=== PATIENT | male | born 1995 | race Two or more races ===

== ENCOUNTER 2024-11-28 00:54 | Inpatient (IN) | payer MEDICAID, OTHER ==
[~2024-11-28] VITALS: Ht 190.5 cm; Wt 71.0 kg
[2024-11-28 02:56] LABS: Hematocrit 40.8 % (41.0-53.0); Hemoglobin 13.6 g/dL (13.5-17.5); Mean Corpuscular Hemoglobin 29.2 pg (28.0-32.0); Mean Corpuscular Volume 87.5 fL (80.0-100.0); Nucleated Red Blood Cells % 0.2 %
[2024-11-28 03:01] LABS: Chloride 102 mmol/L (98-107); Potassium 4.2 mmol/L (3.5-5.1); Sodium 139 mmol/L (136-145)
[2024-11-28 03:02] LABS: Anion Gap 10 (5-15); Calcium 9.8 mg/dL (8.7-10.4); Carbon Dioxide 27 mmol/L (20-31)
[2024-11-28 03:07] LABS: BUN/Creatinine Ratio 20.5 (10.0-20.0)
[2024-11-28 03:13] LABS: Blood Urea Nitrogen 24 mg/dL (9-23); Glucose 118 mg/dL (74-106)
--- NOTE | 2024-11-28 03:31 | ED.PDOC ---
History of Present Illness HPI Comments 29 y/o M is BIBA from private residence for c/c nonradiating, right sided chest pain and shortness of breath. Significant history of CHF and HTN. Per EMS report, patient called 911 after developing chest pain and shortness of breath walking through [place], [place], while trying to make it to [place] from [place] after being discharged from [facility] yesterday. Patient reports history of CHF with an EF<10% He denies having any palpitations, nausea, vomiting, cough, congestion, fever, chills, or further associated symptoms. Chief Complaint: Shortness of Breath Time Seen by MD: 02:00 Reviewed Notes: Nurses Notes, Medications, Allergies Allergies: Coded Allergies: NO KNOWN ALLERGIES (Unverified , 11/28/24) Information Source: Patient, Emergency Med Personnel Mode of Arrival: EMS Severity: Moderate Timing: Hours Duration: Since onset Prehospital treatment: 12 Lead EKG, Nursery Helper Past Medical History PAST MEDICAL HISTORY: CHF, HTN Surgical History (Other): Angiogram Family History Family History: Unknown Social History Smoker: Non-Smoker Alcohol: Denies ETOH Use Drugs: Denies Drug Use Lives In: Home All Other Systems: Reviewed and Negative (Comprehensive review of systems are negative unless otherwise stated in HPI) Physical Exam General Appearance: No Apparent Distress HEENT: Other (Pupils and face symmetric. Moist mucous membranes.) Neck: Full Range of Motion, Normal Inspection Respiratory: No Accessory Muscle Use, No Respiratory Distress, Rales Cardiovascular: No Edema, No JVD, Regular Rate/Rhythm Breast Exam: Deferred Gastrointestinal: Non Tender, Soft Genitalia: Deferred Pelvic: Deferred Rectal: Deferred Extremities: Normal inspection, Normal range of motion, Non-tender, No pedal edema Neurologic: Alert (Oriented x4), Normal Affect, Normal Mood, Other (Ambulatory) Cerebellar Function: NOT DONE Reflexes: NOT DONE Skin: Dry, Normal Color, Warm Lymphatic: NOT DONE Was a procedure done? Was a procedure done?: No EKG EKG : Comments Sinus tach, rate 116, normal [place] and QRS intervals, QTC 490, biatrial enlargement, normal QRS, nonspecific T change Differential Dx Considerations may include: CHF, arrhythmia, MS, PE, ACS, URI, PNA, angina, among others X-Ray, Labs, Meds, VS Vital Signs Date Time Temp Pulse Resp B/P (MAP) Pulse Ox O2 Delivery O2 Flow Rate FiO2 11/28/24 04:21 97.3 116 20 127/92 (104) 100 97.3 11/28/24 01:10 116 11/28/24 01:05 97.9 114 16 109/56 98 97.9 Lab Test 11/28/24 03:25 11/28/24 02:28 Range/Units Troponin I High Sensitivity 205 *H 215 *H </=54 ng/L White Blood Count 7.6 4.4-10.8 10^3/uL Red Blood Count 4.66 4.5-5.90 10^6/uL Hemoglobin 13.6 13.5-17.5 g/dL Hematocrit 40.8 L 41.0-53.0 % Mean Corpuscular Volume 87.5 80.0-100.0 fL Mean Corpuscular Hemoglobin 29.2 28.0-32.0 pg Mean Corpuscular Hemoglobin Concent 33.4 32.0-36.0 g/dL Red Cell Distribution Width 15.8 H 11.8-14.3 % Platelet Count 268 140-450 10^3/uL Mean Platelet Volume 9.6 6.9-10.8 fL Neutrophils (%) (Auto) 75.3 37.0-80.0 % Lymphocytes (%) (Auto) 13.7 10.0-50.0 % Monocytes (%) (Auto) 9.5 0.0-12.0 % Eosinophils (%) (Auto) 0.2 0.0-7.0 % Basophils (%) (Auto) 1.3 0.0-2.0 % Neutrophils # (Auto) 5.7 1.6-8.6 10 ^3/uL Lymphocytes # (Auto) 1.0 0.4-5.4 10 ^3/uL Monocytes # (Auto) 0.7 0-1.3 10 ^3/uL Eosinophils # (Auto) 0 0-0.8 10 ^3/uL Basophils # (Auto) 0.1 0-0.2 10 ^3/uL Nucleated Red Blood Cells 0.2 % Sodium Level 139 136-145 mmol/L Potassium Level 4.2 3.5-5.1 mmol/L Chloride Level 102 98-107 mmol/L Carbon Dioxide Level 27 20-31 mmol/L Anion Gap 10 5-15 Blood Urea Nitrogen 24 H 9-23 mg/dL Creatinine 1.17 0.700-1.30 mg/dL Glomerular Filtration Rate Calc 85 >90 mL/min BUN/Creatinine Ratio 20.5 H 10.0-20.0 Serum Glucose 118 H 74-106 mg/dL Calcium Level 9.8 8.7-10.4 mg/dL B-Type Natriuretic Peptide 6.96 0-100 pg/mL PROCEDURE(s): CXRP - CHEST PORTABLE REASON: sob ORDER NUMBER(s): [id number], ACCESSION NUMBER(s): [id number] CHEST RADIOGRAPH Indication: sob Technique: 1 view Comparison: None available FINDINGS: Lines and Tubes: None Lungs: No focal consolidation. Pleura: No effusion or pneumothorax. Cardiomediastinal contours: Moderate cardiomegaly. Bones: No acute osseous abnormality. IMPRESSION: 1. Cardiomegaly without acute cardiopulmonary abnormality. X-Ray, Labs, Meds, VS Comment 29-year-old male with a history of hypertension and CHF with ejection fraction less than 10% complaining of chest pain and shortness of breath Vitals remarkable for heart rate 115, BP 109/56 Exam remarkable for tachycardia and diminished breath sounds at lung bases Rhythm strip independently interpreted by me: Sinus tach, rate 116, no ectopy. Chest x-ray IMPRESSION: 1. Cardiomegaly without acute cardiopulmonary abnormality. CBC unremarkable, basic metabolic panel remarkable for BUN 24, BNP 2026.96, serial troponins 215 and to 0 5 Patient treated with the following in the ED: Aspirin 325 mg p.o., nitro bid 1/2 inch to chest wall, Lasix 40 mg IV On re-evaluation, patient is resting comfortably with stable vitals. Plan is to admit the patient for diuresis and Cardiology evaluation. Time of 1ST Reevaluation: 02:30 Reevaluation 1ST: Unchanged Patient Education/Counseling: Diagnosis, Treatment, Other (need for admission ) Family Education/Counseling: No Family Present SEPSIS Sepsis Screen Date sepsis recognized/suspect: Nov 28, 2024 Time Sepsis recognized/suspect: 0111 Recent Procedure: No On Antibiotic Therapy: No Respiratory Rate >20: No Heart Rate >90: Yes Temp<36 C (96.8 F) or >38.3 C: No SBP <90 or MAP <65 mmHG: No New Acute Mental Status Change: No Is the patient on CPAP, BIPAP,: No SEPSIS EXCLUSION NOTE: Sepsis Exclusion Note: Patient presents with SIRS criteria, but the SIRS response is attributed to [ chest pain, CHF exacerbation], not a suspected infection. Sepsis bundle is not initiated at this time, due to this reason. Further management will focus on the treatment of the above condition (s). Physician Orders Chest Portable (11/28/24 02:13) Urinalysis (11/28/24 02:13) Electrocardigram (11/28/24 02:13) Troponin-I Hs (11/28/24 05:13) Vital Signs Date Time Temp Pulse Resp B/P (MAP) Pulse Ox O2 Delivery O2 Flow Rate FiO2 11/28/24 04:21 97.3 116 20 127/92 (104) 100 97.3 11/28/24 01:10 116 11/28/24 01:05 97.9 114 16 109/56 98 97.9 Laboratory Tests Test 11/28/24 02:28 White Blood Count 7.6 10^3/uL (4.4-10.8) Departure 1 Departure Time of Disposition: 05:06 Impression: Primary Impression: CHF exacerbation Additional Impression: Elevated troponin Disposition: ADMITTED INPATIENT Admit to: Tele Condition: Guarded Critical Care Note Critical Care Time?: Yes (35 min-critical care time only) Critical care comment: Critical care time including multiple bedside re-evaluations, review of lab and imaging studies, and discussion of the case with the admitting provider. Patient is high risk for hemodynamic decompensation. Stability Stability form required: No Heart Score Heart Score: Heart Score Response (Comments) Value History Moderate Suspicious 1 EKG Repolarization Disturb 1 Age <45 0 Risk Factors 1 or 2 risk factors 1 Troponin >3 x's Normal limit 2 Total 5 I personally scribed for JIGNESH BALL MD ([email or web address]) on 11/28/24 at 03:31. Electronically submitted by Andres Guzman [email or web address]). JIGNESH BALL MD Nov 28, 2024 03:31
--- NOTE | 2024-11-28 03:38 | DVH ---
CHEST RADIOGRAPH Indication: sob Technique: 1 view Comparison: None available FINDINGS: Lines and Tubes: None Lungs: No focal consolidation. Pleura: No effusion or pneumothorax. Cardiomediastinal contours: Moderate cardiomegaly. Bones: No acute osseous abnormality. IMPRESSION: 1. Cardiomegaly without acute cardiopulmonary abnormality.
[2024-11-28 05:43] LABS: Urine Protein, UAD Negative (Negative)
[2024-11-28] MEDS: NITROGLYCERIN 2% OINT 1GM PKG TD ONE (06:13)
[2024-11-28] MEDS: FUROSEMIDE 40 MG/4 ML VIAL IV ONE (06:27)
[2024-11-28 06:33] VITALS: PULSE 109; RESP 26; O2SAT 96
--- NOTE | 2024-11-28 06:39 | ECG ---
[facility] Test Date: 2024-11-28 Test Time: 01:10:25 Pat Name: GARRISON AREVALO Department: ED Room: [address] [place] [address] Gender: M Project Safety Manager: SHANE : 1995 Requested By: JIGNESH VERA Order Number: [id number] Reading MD: Bryan Jalloh Measurements Intervals [place] Rate: 116 P: 72 SC: 158 QRS: 68 QRSD: 98 T: 259 QT: 352 QTc: 490 Interpretive Statements Sinus tachycardia Biatrial enlargement Nonspecific T abnormalities, lateral leads Prolonged QT interval Electronically Signed On 11-28-2024 22:09:34 PDT by Bryan Jalloh Please click the below link to view image of tracing.
[2024-11-28 07:30] VITALS: PULSE 109; RESP 13; O2SAT 98
[2024-11-28] MEDS ORDERED: ASPI81CH59 PO (08:08)
[2024-11-28] MEDS ORDERED: DAPA1TAB4 PO (08:08)
[2024-11-28] MEDS ORDERED: LISI2.5T47 PO (08:08)
[2024-11-28] MEDS ORDERED: CARV3.1240 PO (08:08)
[2024-11-28] MEDS ORDERED: SPIR25TA8 PO (08:08)
[2024-11-28] MEDS ORDERED: APIX5TAB PO (08:08)
[2024-11-28] MEDS ORDERED: BUME2TAB5 PO (08:08)
[2024-11-28] MEDS ORDERED: ACETAMINOPHEN 325 MG TAB PO PRN (08:15)
[2024-11-28] MEDS ORDERED: MORPHINE SULFATE INJ 2 MG/ml SYRG IV PRN (08:15)
[2024-11-28] MEDS ORDERED: DOCUSATE SOD 100 MG CAP PO PRN (08:15)
[2024-11-28] MEDS ORDERED: NITROGLYCERIN 0.4 MG SL TAB SL PRN (08:15)
--- NOTE | 2024-11-28 08:16 | DVHHP2 ---
History of Present Illness Reason for Visit: Shortness of breath History of Present Illness Kyler Tanner is a 29-year-old male with past medical history of CHF, hypertension, and DVT in left leg, who came to the hospital for shortness of breath. Patient states he was recently discharged from [facility] yesterday. He was trying to get home when he started experiencing chest pain and shortness of breath. Patient states he was hospitalized there for almost a week due to his heart failure. He has not been taking his home medications because he does not have them. 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 Dyspnea, Lt Headedness, Other Gastrointestinal: No: Nausea, Vomiting, Abdominal Pain, Diarrhea, Constipation, Melena, Hematochezia, Other Genitourinary: No Dysuria, No Frequency, No Incontinence, No Hematuria, No Retention, No Other Musculoskeletal: No: other, neck pain, shoulder pain, arm pain, back pain, hand pain, leg pain, foot pain Skin: No: Rash, Lesions, Jaundice, Bruising, Other Neurological: No: Weakness, Numbness, Incoordination, Change in speech, Confusion, Seizures, Other Allergies: Coded Allergies: NO KNOWN ALLERGIES (Unverified , 11/28/24) Medications Current Medications Medications Dose Ordered Sig/Briana Route Start Time Stop Time Status Last Admin Dose Admin Sodium Chloride 10 ml Q8HR IV 11/28/24 14:00 UNV Acetaminophen/ Hydrocodone Bitart 1 tab Q4HP PRN PO 11/28/24 08:15 UNV Ondansetron HCl 4 mg Q4HP PRN IV 11/28/24 08:15 UNV Docusate Sodium 100 mg BIDPRN PRN PO 11/28/24 08:15 UNV Acetaminophen 650 mg Q6HP PRN PO 11/28/24 08:15 UNV Nitroglycerin 0.4 mg Q5MINP PRN SL 11/28/24 08:15 UNV Morphine Sulfate 2 mg Q30M PRN IV 11/28/24 08:15 UNV Apixaban 5 mg BID PO 11/28/24 10:00 UNV Carvedilol 3.125 mg BID PO 11/28/24 10:00 UNV Spironolactone 25 mg DAILY PO 11/28/24 10:00 UNV Patient Own Medication 1 tab DAILY PO 11/28/24 10:00 UNV Patient Own Medication 1 tab DAILY PO 11/28/24 10:00 UNV Lisinopril 2.5 mg DAILY PO 11/28/24 10:00 UNV Exam Vital Signs Vital Signs Date Time Temp Pulse Resp B/P (MAP) Pulse Ox O2 Delivery O2 Flow Rate FiO2 11/28/24 06:33 109 26 96 Room Air* 0 21 11/28/24 06:27 118/84 11/28/24 04:21 97.3 97.3 General Appearance: Alert, Oriented X3, Cooperative, mild distress HEENT: Atraumatic Respiratory: Clear to auscultation, Normal air movement Cardiovascular: Normal S1, Normal S2, Other (ST) Abdominal: Normal bowel sounds, Soft, No tenderness, No hepatospenomegaly Extremities: No clubbing, No cyanosis, Normal pulses, Other (bilateral lower extremity edema) Skin: No rashes, No breakdown, No significant lesion Neuro: Normal gait, Normal speech, Strength at 5/5 X4 ext Psych/Mental Status: Mental status NL, Mood NL Labs/Xrays Labs Test 11/28/24 05:36 11/28/24 05:26 11/28/24 02:28 Range/Units Urine Color Yellow Yellow Urine Clarity Clear Clear Urine pH 5.0 5.0-9.0 Urine Specific [place] 1.017 1.001-1.035 Urine Protein Negative Negative Urine Ketones Negative Negative Urine Blood Negative Negative /uL Urine Nitrite Negative Negative Urine Bilirubin Negative Negative Urine Urobilinogen Normal Negative mg/dL Urine Leukocyte Esterase Negative Negative /uL Urine RBC None seen 0 - 3 /hpf Urine Microscopic WBC < 1 0-3 /HPF Urine Squamous Epithelial Cells None seen <5 /hpf Urine Bacteria None seen None Seen /hpf Urine Glucose Normal Normal mg/dL Troponin I High Sensitivity 215 *H </=54 ng/L White Blood Count 7.6 4.4-10.8 10^3/uL Red Blood Count 4.66 4.5-5.90 10^6/uL Hemoglobin 13.6 13.5-17.5 g/dL Hematocrit 40.8 L 41.0-53.0 % Mean Corpuscular Volume 87.5 80.0-100.0 fL Mean Corpuscular Hemoglobin 29.2 28.0-32.0 pg Mean Corpuscular Hemoglobin Concent 33.4 32.0-36.0 g/dL Red Cell Distribution Width 15.8 H 11.8-14.3 % Platelet Count 268 140-450 10^3/uL Mean Platelet Volume 9.6 6.9-10.8 fL Neutrophils (%) (Auto) 75.3 37.0-80.0 % Lymphocytes (%) (Auto) 13.7 10.0-50.0 % Monocytes (%) (Auto) 9.5 0.0-12.0 % Eosinophils (%) (Auto) 0.2 0.0-7.0 % Basophils (%) (Auto) 1.3 0.0-2.0 % Neutrophils # (Auto) 5.7 1.6-8.6 10 ^3/uL Lymphocytes # (Auto) 1.0 0.4-5.4 10 ^3/uL Monocytes # (Auto) 0.7 0-1.3 10 ^3/uL Eosinophils # (Auto) 0 0-0.8 10 ^3/uL Basophils # (Auto) 0.1 0-0.2 10 ^3/uL Nucleated Red Blood Cells 0.2 % Sodium Level 139 136-145 mmol/L Potassium Level 4.2 3.5-5.1 mmol/L Chloride Level 102 98-107 mmol/L Carbon Dioxide Level 27 20-31 mmol/L Anion Gap 10 5-15 Blood Urea Nitrogen 24 H 9-23 mg/dL Creatinine 1.17 0.700-1.30 mg/dL Glomerular Filtration Rate Calc 85 >90 mL/min BUN/Creatinine Ratio 20.5 H 10.0-20.0 Serum Glucose 118 H 74-106 mg/dL Calcium Level 9.8 8.7-10.4 mg/dL B-Type Natriuretic Peptide 2026.96 0-100 pg/mL CHEST RADIOGRAPH FINDINGS: Lines and Tubes: None Lungs: No focal consolidation. Pleura: No effusion or pneumothorax. Cardiomediastinal contours: Moderate cardiomegaly. Bones: No acute osseous abnormality. IMPRESSION: 1. Cardiomegaly without acute cardiopulmonary abnormality. SEPSIS Sepsis Screen Date sepsis recognized/suspect: Nov 28, 2024 Time Sepsis recognized/suspect: 636 Recent Procedure: No On Antibiotic Therapy: No Respiratory Rate >20: Yes Heart Rate >90: Yes Temp<36 C (96.8 F) or >38.3 C: No SBP <90 or MAP <65 mmHG: No New Acute Mental Status Change: No Is the patient on CPAP, BIPAP,: No Physician Orders Chest Portable (11/28/24 02:13) Admit (11/28/24 08:05) Code Status (11/28/24 08:05) Sodium Chloride Lock (Saline Lock Ns) (11/28/24 14:00) Hydrocodone-Acet 5/325mg Tab ([place] 5/32 (11/28/24 08:15) Ondansetron Hcl (Zofran) (11/28/24 08:15) Docusate Sodium Capsule (Colace Capsule) (11/28/24 08:15) Complete Blood Count (11/29/24 04:00) Comprehensive Metabolic Panel (11/29/24 04:00) Cardiac Diet-2gna,Lofat,Lochol (11/28/24 Breakfast) Echo 2d Mode Cardiac Dop (11/28/24 08:05) Condition: Serious (11/28/24 08:05) Acetaminophen Tablet (Tylenol Tablet) (11/28/24 08:15) Nitroglycerin Sublingual (Ntrostat Subli (11/28/24 08:15) Morphine Sulfate Injection (11/28/24 08:15) Stat Ekg For Chest Pain (11/28/24 08:05) Notify Md Of Changes From Base (11/28/24 08:05) Hand Cigar Making Supervisor For 24 Hours (11/28/24 08:05) Emergency Dysrhythmia Protocol (11/28/24 08:05) Rhythm Strips Once Every Shift (11/28/24 08:05) Oxygen By Nasal Cannula (11/28/24 08:05) Maintain Fluid Restrictions QSHIFT (11/28/24 08:05) * Drywall Finisher Foreman Consult (11/28/24 ) Apixaban (Eliquis) (11/28/24 10:00) Carvedilol Tablet (Coreg Tablet) (11/28/24 10:00) Spironolactone (Aldactone) (11/28/24 10:00) (Nf) Aspirin (Aspirin Low Dose) (11/28/24 10:00) (Nf) Dapagliflozin Propanediol (Farxiga) (11/28/24 10:00) Lisinopril Tablet (Zestril Tablet) (11/28/24 10:00) Vital Signs Date Time Temp Pulse Resp B/P (MAP) Pulse Ox O2 Delivery O2 Flow Rate FiO2 11/28/24 06:33 109 26 96 Room Air* 0 21 11/28/24 06:27 118/84 11/28/24 06:13 118/84 11/28/24 06:11 117 17 118/84 (95) 97 11/28/24 04:21 97.3 116 20 127/92 (104) 100 97.3 11/28/24 01:10 116 11/28/24 01:05 97.9 114 16 109/56 98 97.9 Laboratory Tests Test 11/28/24 02:28 White Blood Count 7.6 10^3/uL (4.4-10.8) Medications Medications Dose Ordered Sig/Briana Route Start Time Stop Time Status Last Admin Dose Admin Aspirin 325 mg ONCE ONCE PO 11/28/24 05:15 11/28/24 05:16 DC 11/28/24 06:12 325 MG Furosemide 40 mg ONCE ONCE IV 11/28/24 02:15 11/28/24 02:16 DC 11/28/24 06:27 40 MG Nitroglycerin 1 pkg ONCE ONCE TD 11/28/24 02:15 11/28/24 02:16 DC 11/28/24 06:13 1 PKG Assessment/Plan Assessment/Plan Assessment: CHF exacerbation, Hypertension, Cardiomegaly, DVT, Plan: Admit to Tele, Social service consult, Cardiology consult, ECHO, Ultrasound left lower extremity, IV diuretic, Fluid restriction, Social service consult, Home medications reconciled, Plan discussed with: Patient My Orders Orders - JUDY CRUZ SHIFT PRODUCTION ASSOCIATE Procedure Category Date Status Time Admit ADMIT 11/28/24 Transmitted 08:05 Code Status CODE 11/28/24 Transmitted 08:05 Sodium Chloride Lock PHA 11/28/24 Logged (Saline Lock Ns) 14:00 Hydrocodone-Acet PHA 11/28/24 Logged 5/325mg Tab ([place] 08:15 Ondansetron Hcl PHA 11/28/24 Logged (Zofran) 08:15 Docusate Sodium PHA 11/28/24 Logged Capsule (Colace 08:15 Complete Blood Count LAB 11/29/24 Verified 04:00 Comprehensive LAB 11/29/24 Verified Metabolic Panel 04:00 Cardiac DIET 11/28/24 Transmitted Diet-2gna,Lofat,Lochol Breakfast Echo 2d Mode Cardiac US 11/28/24 Logged DOP 08:05 Condition: Serious [facility] [place] 11/28/24 In Process 08:05 Acetaminophen Tablet [facility] 11/28/24 Logged (Tylenol Tablet) 08:15 Nitroglycerin PHA 11/28/24 Logged Sublingual (Ntrostat 08:15 Morphine Sulfate PHA 11/28/24 Logged Injection 08:15 Stat Ekg For Chest [facility] [place] 11/28/24 In Process Pain 08:05 Notify Of Changes [facility] [place] 11/28/24 In Process From Base 08:05 Hand Cigar Making Supervisor For [facility] [place] 11/28/24 In Process 24 Hours 08:05 Emergency Dysrhythmia [facility] [place] 11/28/24 In Process Protocol 08:05 Rhythm Strips Once [facility] [place] 11/28/24 In Process Every Shift 08:05 Oxygen By Nasal RT 11/28/24 Transmitted Cannula 08:05 Maintain Fluid [facility] [place] 11/28/24 In Process Restrictions 08:05 * Drywall Finisher Foreman CONS 11/28/24 Transmitted Consult Apixaban (Eliquis) PHA 11/28/24 Logged 10:00 Carvedilol Tablet PHA 11/28/24 Logged (Coreg Tablet) 10:00 Spironolactone PHA 11/28/24 Logged (Aldactone) 10:00 (Nf) Aspirin (Aspirin PHA 11/28/24 Logged Low Dose) 10:00 (Nf) Dapagliflozin PHA 11/28/24 Logged Propanediol (Farxiga) 10:00 Lisinopril Tablet PHA 11/28/24 Logged (Zestril Tablet) 10:00 Date of Service: Nov 28, 2024 Billing Provider: JUDY CRUZ Common Visit Codes: [id number] INP/OBS CARE (MOD) JUDY CRUZ Nov 28, 2024 08:16
--- NOTE | 2024-11-28 09:05 | DVH ---
Left lower extremity venous duplex Clinical History: H/O DVT Comparison: None Technique: Duplex Doppler evaluation of the deep venous system of the left lower extremity from the common femor al vein to the popliteal vein including color Doppler and spectral/pulsed waveform analysis was perfo rmed. Findings: The common femoral vein demonstrates appropriate compressibility and waveform variability. There is compressibility/patency of the great saphenous vein at the proximal thigh. The femoral vein demonstrates appropriate compressibility and waveform variability. The deep femoral vein demonstrates appropriate compressibility and waveform variability. The popliteal vein demonstrates appropriate compressibility and waveform variability. There is normal compressibility at the tibioperoneal trunk. Impression: 1. No left femoropopliteal venous thrombosis.
[2024-11-28] MEDS: DAPAGLIFLOZIN PROPANEDIOL 10 MG PO SCH (10:00)
[2024-11-28] MEDS ORDERED: PATIENTS OWN MEDICATION (Aspirin (Aspirin Low Dose) 1 TAB) PO SCH (10:00)
[2024-11-28] MEDS: ASPirin-EC 81 mg tab PO SCH (10:22)
[2024-11-28] MEDS: CARVEDILOL 3.125 MG TAB PO SCH (10:23)
[2024-11-28] MEDS: LISINOPRIL 5 MG TAB PO SCH (10:24)
[2024-11-28] MEDS: APIXABAN 5 MG TAB PO SCH (10:24)
[2024-11-28] MEDS: SPIRONOLACTONE 25 MG TAB PO SCH (10:37)
[2024-11-28] MEDS: SODIUM CHLOR 0.9% PF (SALINE LOCK) 10ML VIAL/SYR IV SCH (14:00)
--- NOTE | 2024-11-28 14:00 | DVHPN2 ---
Subjective He is admitted this morning for shortness for breath. Noted to have heart failure. Discussed with the Cardiology. Changes from previous H/P or p: No Changes Objective Vitals Vital Signs Date Time Temp Pulse Resp B/P (MAP) Pulse Ox O2 Delivery O2 Flow Rate FiO2 11/28/24 12:00 107 23 100/58 (72) 98 11/28/24 07:30 Room Air* 0 21 11/28/24 07:30 97.9 97.9 Intake/Output Intake and Output 11/28/24 07:00 Output Total 300 ml Balance -300 ml Output Urine Total 300 ml Exam No significant change from this morning examination. HEENT neck supple no JVD. Heart regular rate and rhythm S1-S2. Lungs without rales wheezes degraded breath sounds at bases. Abdomen soft obese positive bowel sounds. Extremities positive edema. Medications Current Medications Medications Dose Ordered Sig/Briana Route Start Time Stop Time Status Last Admin Dose Admin Sodium Chloride 10 ml Q8HR IV 11/28/24 14:00 Acetaminophen/ Hydrocodone Bitart 1 tab Q4HP PRN PO 11/28/24 08:15 Ondansetron HCl 4 mg Q4HP PRN IV 11/28/24 08:15 Docusate Sodium 100 mg BIDPRN PRN PO 11/28/24 08:15 Acetaminophen 650 mg Q6HP PRN PO 11/28/24 08:15 Nitroglycerin 0.4 mg Q5MINP PRN SL 11/28/24 08:15 Morphine Sulfate 2 mg Q30M PRN IV 11/28/24 08:15 Apixaban 5 mg BID PO 11/28/24 10:00 11/28/24 10:24 5 MG Carvedilol 3.125 mg BID PO 11/28/24 10:00 11/28/24 10:23 3.125 MG Spironolactone 25 mg DAILY PO 11/28/24 10:00 11/28/24 10:37 25 MG Patient Own Medication 1 tab DAILY PO 11/28/24 10:00 UNV Patient Own Medication 1 tab DAILY PO 11/28/24 10:00 Lisinopril 2.5 mg DAILY PO 11/28/24 10:00 11/28/24 10:24 2.5 MG Bumetanide 1 mg BIDD IV 11/28/24 18:00 Aspirin 81 mg DAILY PO 11/28/24 10:00 84/25 10:22 81 MG Laboratory Results Laboratory Tests 11/28/24 02:28 Chemistry Test 11/28/24 02:28 Calcium Level 9.8 mg/dL (8.7-10.4) Cardiac Markers Test 11/28/24 02:28 B-Type Natriuretic Peptide 2026.96 pg/mL (0-100) Urinalysis Test 11/28/24 05:36 Urine Color Yellow (Yellow) Urine Clarity Clear (Clear) Urine pH 5.0 (5.0-9.0) Urine Specific [place] 1.017 (1.001-1.035) Urine Protein Negative (Negative) Urine Ketones Negative (Negative) Urine Blood Negative /uL (Negative) Urine Nitrite Negative (Negative) Urine Bilirubin Negative (Negative) Urine Urobilinogen Normal mg/dL (Negative) Urine Leukocyte Esterase Negative /uL (Negative) Urine RBC None seen /hpf (0 - 3) Urine Microscopic WBC < 1 /HPF (0-3) Urine Squamous Epithelial Cells None seen /hpf (<5) Urine Bacteria None seen /hpf (None Seen) Urine Glucose Normal mg/dL (Normal) Assessment/Plan Assessment/Plan Acute congestive heart failure. I will send a urine drug screen. Pending cardiology consultation. Continue IV diuretics as he is on. Continue Accu- Cheks and sliding scale insulin. Check A1c level and lipid panel. Otherwise continue rest of supportive care and treatment. Further clinical management per clinical course and recommendations from the Cardiology. Plan discussed with: Other My Orders Orders - MAR JACKSON MD Procedure Category Date Status Time * Cardiology Consult CONS 11/28/24 Transmitted 12:30 Drug Screen LAB 11/28/24 Logged 12:31 Urinalysis LAB 11/28/24 Logged 12:31 Problem List: (1) Elevated troponin (2) CHF exacerbation Date of Service: Nov 28, 2024 Billing Provider: MAR JACKSON MD Common Visit Codes: [id number] INP/OBS CARE(MOD) MAR JACKSON MD Nov 28, 2024 14:00
--- NOTE | 2024-11-28 14:03 | DVHSR ---
APPROVED REPORT EXAM: Two-dimensional and M-mode echocardiogram with Doppler and color Doppler. Blood Pressure: 118/84 mmHg INDICATION Heart Failure RISK FACTORS Height: 6'2", Weight: 149 DIMENSIONS LVDd6.5 (3.8-5.7cm)LA (2D)4.2 (1.9-4.0cm)Aortic Root2.3 (2.0-3.7cm) LVDs6.3 (2.5-4.0cm)LA (MM) (1.9-4.0cm)Aortic Cusp Exc1.9 (1.5-2.0cm) EF (%) 8.0 (55-70%)Rt. Atrium5.3 (1.9-4.0cm)Asc. Aorta2.0 cm IVSd0.7 (0.7-1.1cm)RV (D)4.2 (1.8-2.4cm) PWd0.7 (0.7-1.1cm) Mitral Valve MitralMitral Stenosis E wave1.34m/sMV Mean GR.mmHg E/A ratio0.02D MVAcm2 Aortic Valve Aortic ValveAortic Stenosis V10.66m/Josh Mean GR.2mmHg V20.97m/Josh Peak GR.4mmHg LVOT Diameter1.9 (1.8-2.4cm)Doppler AVA1.93cm2 Pulmonic Valve V20.55m/s Tricuspid Valve TR Velocity2.66m/s [id number] Conclusion LVEF 10% SEVER DILATED LV END STAGE CARDIOMYOPATHY RV DYSFUNCTION BIATRIAL ENLARGEMENT MILD MITRAL REGURG (COULD BE WORSE) SEVERE TRICUSPID REGURG NOTED milpd pulmonic regurg
--- NOTE | 2024-11-28 14:36 | DVHINCON2 ---
PENG THOMSON [facility] 11/28/24 1436: Date Seen: Nov 28, 2024 Referring Physician MD Marcello Reason for Consultation CHF History of Present Illness This is a 29-year-old male patient who presents to the emergency room with chief complaint of shortness of breath for one day prior to emergency room arrival. Cardiology has been consulted at this time for congestive heart failure exacerbation. Initial twelve lead electrocardiogram reveals sinus tachycardia without any significant ST segment changes. Initial troponin level of 215ng/L with flat trend thereafter. Patient denies any chest pain. Initial BNP level of 2026.96pg/mL. Significant past medical history includes congestive heart failure, nonischemic cardiomyopathy, hypertension, lower extremity DVT (on Eliquis), and drug abuse. The patient reports he was recently hospitalized at [facility]. He reports undergoing a coronary angiogram dustin roximately five days ago without any catheter based intervention. The patient reports that after discharge, he did not receive any medications and has not been taking any medications for his heart failure. He also admits to dietary indiscretions. He has not established a supervisor of officials in the outpatient setting. Past Medical History Past medical history reviewed. No other significant than mentioned above. Past Surgical History Denies any previous surgical intervention Family History Family history reviewed. Social History Patient admits to prior methamphetamine use, states he has not used drugs in approximately two months Reports history of occasional cigar use, reports he has not used any tobacco in two months Denies any alcohol use Allergies: Coded Allergies: NO KNOWN ALLERGIES (Unverified , 11/28/24) Home Meds Reported Medications Apixaban Base (ELIQUIS) 5 Mg Tab, 1 TAB PO BID 11/28/24 Aspirin (Aspirin Low Dose) 81 Mg Chw, 1 TAB PO DAILY 11/28/24 Spironolactone (Spironolactone) 25 Mg Tab, 1 TAB PO DAILY 11/28/24 Lisinopril (Lisinopril) 2.5 Mg Tab, PO 11/28/24 Carvedilol (Carvedilol) 3.125 Mg Tab, 1 TAB PO BID 11/28/24 Dapagliflozin Propanediol (Farxiga) 10 Mg Tab, 1 TAB PO DAILY 11/28/24 Bumetanide (Bumetanide) 2 Mg Tab, 1 TAB PO BID 11/28/24 Home Meds Home medications reviewed. Current Medications Current Medications Medications (Trade) Dose Ordered Sig/Briana Route PRN Reason Start Time Stop Time Status Last Admin Sodium Chloride (Saline Lock Ns) 10 ml Q8HR IV 11/28/24 14:00 Acetaminophen/ Hydrocodone Bitart ([place] 5/325MG Tab) 1 tab Q4HP PRN PO MODERATE PAIN (4-6 PAIN SCALE) 11/28/24 08:15 Ondansetron HCl (Zofran) 4 mg Q4HP PRN IV NAUSEA / VOMITING 11/28/24 08:15 Docusate Sodium (Colace Capsule) 100 mg BIDPRN PRN PO FOR CONSTIPATION 11/28/24 08:15 Acetaminophen (Tylenol Tablet) 650 mg Q6HP PRN PO PAIN SCALE 1-3 OR TEMP>100.4 11/28/24 08:15 Nitroglycerin (Ntrostat Sublingual) 0.4 mg Q5MINP PRN SL FOR CHEST PAIN 11/28/24 08:15 Morphine Sulfate 2 mg Q30M PRN IV FOR CHEST PAIN 11/28/24 08:15 Apixaban (Eliquis) 5 mg BID PO 11/28/24 10:00 11/28/24 10:24 Carvedilol (Coreg Tablet) 3.125 mg BID PO 11/28/24 10:00 11/28/24 10:23 Spironolactone (Aldactone) 25 mg DAILY PO 11/28/24 10:00 11/28/24 10:37 Patient Own Medication 1 tab DAILY PO 11/28/24 10:00 UNV Patient Own Medication 1 tab DAILY PO 11/28/24 10:00 Lisinopril (Zestril Tablet) 2.5 mg DAILY PO 11/28/24 10:00 11/28/24 10:24 Bumetanide (Bumex Injection) 1 mg BIDD IV 11/28/24 18:00 Aspirin (Ecotrin Enteric Coated Tablet) 81 mg DAILY PO 11/28/24 10:00 11/28/24 10:22 Review of Systems Constitutional: No symptom reported Ears, Nose, & Throat: No symptom reported Eyes: No symptom reported Neurological: No symptoms reported Pulmonary/Respiratory: No symptoms reported Cardiovascular: No symptom reported Gastrointestinal: No symptom reported Genitourinary: No symptom reported Musculoskeletal: No symptom reported Skin: No symptom reported Psychiatric: No symptom reported Endocrine: No symptom reported Hematologic/Lymphatic: No symptom reported Vital Signs Vital Signs Date Time Temp Pulse Resp B/P (MAP) Pulse Ox O2 Delivery O2 Flow Rate FiO2 11/28/24 12:00 107 23 100/58 (72) 98 11/28/24 07:30 Room Air* 0 21 11/28/24 07:30 97.9 97.9 Physical Exam General Appearance: Cooperative. Well-developed. Well-nourished. No acute distress. Pulmonary/Respiratory: Clear, bilateral breaths sounds. Cardiovascular/Chest: Regular rate and rhythm. Peripheral Pulses: 2+ Radial (R). 2+ Radial (L). 2+ Pedal (R). 2+ Pedal (L) Abdominal Exam: Normal bowel sounds. Ankle Exam: Negative ankle edema Lower extremities: Negative lower extremity edema Neuro/Mental Status: A/OX4, coherent. Thoughts/Psych: Normal thought pattern. Appropriate mood and affect. Good judgment and insight. Appearance: No acute distress. Skin Exam: Normal inspection. Normal color. Warm and dry. Labs/Diagnostic Data Labs Test 11/28/24 05:36 11/28/24 05:26 11/28/24 02:28 Range/Units Urine Color Yellow Yellow Urine Clarity Clear Clear Urine pH 5.0 5.0-9.0 Urine Specific [place] 1.017 1.001-1.035 Urine Protein Negative Negative Urine Ketones Negative Negative Urine Blood Negative Negative /uL Urine Nitrite Negative Negative Urine Bilirubin Negative Negative Urine Urobilinogen Normal Negative mg/dL Urine Leukocyte Esterase Negative Negative /uL Urine RBC None seen 0 - 3 /hpf Urine Microscopic WBC < 1 0-3 /HPF Urine Squamous Epithelial Cells None seen <5 /hpf Urine Bacteria None seen None Seen /hpf Urine Glucose Normal Normal mg/dL Troponin I High Sensitivity 215 *H </=54 ng/L White Blood Count 7.6 4.4-10.8 10^3/uL Red Blood Count 4.66 4.5-5.90 10^6/uL Hemoglobin 13.6 13.5-17.5 g/dL Hematocrit 40.8 L 41.0-53.0 % Mean Corpuscular Volume 87.5 80.0-100.0 fL Mean Corpuscular Hemoglobin 29.2 28.0-32.0 pg Mean Corpuscular Hemoglobin Concent 33.4 32.0-36.0 g/dL Red Cell Distribution Width 15.8 H 11.8-14.3 % Platelet Count 268 140-450 10^3/uL Mean Platelet Volume 9.6 6.9-10.8 fL Neutrophils (%) (Auto) 75.3 37.0-80.0 % Lymphocytes (%) (Auto) 13.7 10.0-50.0 % Monocytes (%) (Auto) 9.5 0.0-12.0 % Eosinophils (%) (Auto) 0.2 0.0-7.0 % Basophils (%) (Auto) 1.3 0.0-2.0 % Neutrophils # (Auto) 5.7 1.6-8.6 10 ^3/uL Lymphocytes # (Auto) 1.0 0.4-5.4 10 ^3/uL Monocytes # (Auto) 0.7 0-1.3 10 ^3/uL Eosinophils # (Auto) 0 0-0.8 10 ^3/uL Basophils # (Auto) 0.1 0-0.2 10 ^3/uL Nucleated Red Blood Cells 0.2 % Sodium Level 139 136-145 mmol/L Potassium Level 4.2 3.5-5.1 mmol/L Chloride Level 102 98-107 mmol/L Carbon Dioxide Level 27 20-31 mmol/L Anion Gap 10 5-15 Blood Urea Nitrogen 24 H 9-23 mg/dL Creatinine 1.17 0.700-1.30 mg/dL Glomerular Filtration Rate Calc 85 >90 mL/min BUN/Creatinine Ratio 20.5 H 10.0-20.0 Serum Glucose 118 H 74-106 mg/dL Calcium Level 9.8 8.7-10.4 mg/dL B-Type Natriuretic Peptide 2026.96 0-100 pg/mL Assessment Acute on chronic decompensated HFrEF, NYHA class III NSTEMI, type 2 secondary to above Nonischemic dilated cardiomyopathy Severe tricuspid regurgitation Hypertension History of lower extremity DVT (on Eliquis) History of amphetamine use Medical noncompliance Plan/Recommendation We will continue with the following plan/recommendations (Dr. Henry): * Transthoracic echocardiogram reveals an EF of 10%, RVSP 45 mmHg * Initiate guideline directed medical therapy for CHF * Strict intake and output, daily weights, maintain fluid restriction * Preload and afterload reduction * Close Cardiac surveillance * Risk factor modifications, counseled * Adherence to medications * Complete cessation from substance use Case discussed with . Thank you for allowing us to care for this patient. Please call with any questions or concerns. Critical care time spent: 44 minutes This medical document was created using an electronic medical record system with voice recognition software and computerized dictation system. Although this document has been carefully reviewed, there might still be some phonetic and typographical errors. Occasional wrong-word or ``sound-alike substitutions may have occurred due to the inherent limitations of voice recognition software. These areas are purely typographical due to imperfections of the software programs and do not reflect any compromise in the patient's medical care. Please read the chart carefully and recognize, using context, where these substitutions have occurred. Plan discussed with: Patient NYHA Physical activity limitations: Class3(Marked) ordinary (activity causes symtoms) Date of Service: Nov 28, 2024 Billing Provider: PENG THOMSON Cardiology Common Codes: 18620-CMNGQNT INP/OBS CARE (High) Cardiology Consultation Codes: 47096-OIRSGLTST CONSULT <45MIN GRUPO HENRY MD 11/29/24 1105: Allergies: Coded Allergies: NO KNOWN ALLERGIES (Unverified , 11/28/24) Home Meds Reported Medications Apixaban Base (ELIQUIS) 5 Mg Tab, 1 TAB PO BID 11/28/24 Aspirin (Aspirin Low Dose) 81 Mg Chw, 1 TAB PO DAILY 11/28/24 Spironolactone (Spironolactone) 25 Mg Tab, 1 TAB PO DAILY 11/28/24 Lisinopril (Lisinopril) 2.5 Mg Tab, PO 11/28/24 Carvedilol (Carvedilol) 3.125 Mg Tab, 1 TAB PO BID 11/28/24 Dapagliflozin Propanediol (Farxiga) 10 Mg Tab, 1 TAB PO DAILY 11/28/24 Bumetanide (Bumetanide) 2 Mg Tab, 1 TAB PO BID 11/28/24 Plan/Recommendation totally non compliant pt active drug abuse recent admit to outside facility very grim prognosis senior living with continued lack of adherence diurese pt, dc home to follow with GDMT . unlikely to be taken PENG THOMSON Nov 28, 2024 14:36 GRUPO HENRY MD Nov 29, 2024 11:05
[2024-11-28 14:57] LABS: Triglycerides 66.0 mg/dL (< 150)
[2024-11-28 14:58] LABS: Magnesium 2.4 mg/dL (1.6-2.6)
[2024-11-28 14:59] LABS: Cholesterol 128.0 mg/dL (< 200); HDL Cholesterol 51.0 mg/dL (40-59)
[2024-11-28 15:03] LABS: Amphetamine Screen, Urine Neg (NEGATIVE); Barbiturate Scree,Urine Neg (NEGATIVE); Benzodiazephine Screen, Urine Neg (NEGATIVE); Cannabinoid Screen, Urine Neg (NEGATIVE); Cocaine Screen, Urine Neg (NEGATIVE); Opiate Scree,Urine Neg (NEGATIVE); Phencyclidine Screen, Urine Neg (NEGATIVE)
[2024-11-28 17:00] VITALS: BP 94/61; O2SAT 96
[2024-11-28] MEDS: BUMETANIDE 1mg/4ml VIAL (0.25mg/ml) IV SCH (19:00)
[2024-11-28] MEDS: HYDROcodone-ACET 5/325MG TAB PO PRN (21:22)
[2024-11-28 21:27] VITALS: BP 114/74; PULSE 109; RESP 14; TEMP 97.7; O2SAT 100
[2024-11-28 21:49] LABS: Urine Protein, UAD Negative (Negative)
[2024-11-29 00:51] VITALS: BP 114/74; PULSE 109; RESP 14; TEMP 97.7; O2SAT 100
[2024-11-29 05:00] VITALS: BP 115/74; PULSE 98; RESP 16; TEMP 98.2; O2SAT 97
[2024-11-29 07:56] LABS: Hematocrit 41.1 % (41.0-53.0); Hemoglobin 13.6 g/dL (13.5-17.5); Mean Corpuscular Hemoglobin 29.3 pg (28.0-32.0); Mean Corpuscular Volume 88.3 fL (80.0-100.0); Nucleated Red Blood Cells % 0.1 %
[2024-11-29 08:00] VITALS: PULSE 94; RESP 18; O2SAT 99
[2024-11-29 08:06] LABS: Alanine Aminotransferase 88 U/L (7-40); Albumin 4.6 g/dL (3.2-4.8); Alkaline Phosphatase 123 U/L (46-116); Anion Gap 11 (5-15); BUN/Creatinine Ratio 20.5 (10.0-20.0); Blood Urea Nitrogen 26 mg/dL (9-23); Calcium 9.4 mg/dL (8.7-10.4); Carbon Dioxide 27 mmol/L (20-31); Chloride 102 mmol/L (98-107); Glucose 99 mg/dL (74-106); Potassium 4.0 mmol/L (3.5-5.1); Sodium 140 mmol/L (136-145); Total Protein 7.0 g/dL (5.7-8.2)
[2024-11-29 08:09] LABS: Bilirubin, Total 1.7 mg/dL (0.2-1.0)
[2024-11-29 09:00] VITALS: BP 121/75; PULSE 95; RESP 18; TEMP 98; O2SAT 100
[2024-11-29] MEDS: EMPAGLIFLOZIN 10 MG TAB PO SCH (10:28)
[2024-11-29 13:00] VITALS: BP 96/61; PULSE 60; RESP 18; TEMP 98; O2SAT 99
--- NOTE | 2024-11-29 14:45 | DVHPN2 ---
Subjective Evaluated by Cardiology had an echocardiogram shows ejection fraction about 10%. Patient counseled and educated regarding his poor ejection fraction heart failure and compliance with the medications. Apparently has not been taking his cardiac medications for last few months. Changes from previous H/P or p: No Changes Objective Vitals Vital Signs Date Time Temp Pulse Resp B/P (MAP) Pulse Ox O2 Delivery O2 Flow Rate FiO2 11/29/24 11:31 60 96/61 11/29/24 09:00 98.0 18 100 98.0 11/29/24 08:00 Room Air* 0 21 Intake/Output Intake and Output 11/29/24 07:00 Intake Total 1120 ml Balance 1120 ml Intake Oral 1120 ml # Voids 3 Exam Comfortable in bed without distress. Alert awake oriented x3. Wants to talked to Software Applications Architect regarding his home situation. HEENT neck supple no JVD. Heart regular rate and rhythm S1-S2. Lungs fair air movement without rales wheezes. Abdomen soft nontender positive bowel sounds. Extremities no edema. Medications Current Medications Medications Dose Ordered Sig/Briana Route Start Time Stop Time Status Last Admin Dose Admin Sodium Chloride 10 ml Q8HR IV 11/28/24 14:00 11/29/24 14:00 10 ML Acetaminophen/ Hydrocodone Bitart 1 tab Q4HP PRN PO 11/28/24 08:15 11/29/24 10:32 1 TAB Ondansetron HCl 4 mg Q4HP PRN IV 11/28/24 08:15 Docusate Sodium 100 mg BIDPRN PRN PO 11/28/24 08:15 Acetaminophen 650 mg Q6HP PRN PO 11/28/24 08:15 Nitroglycerin 0.4 mg Q5MINP PRN SL 11/28/24 08:15 Morphine Sulfate 2 mg Q30M PRN IV 11/28/24 08:15 Apixaban 5 mg BID PO 11/28/24 10:00 11/29/24 10:29 5 MG Carvedilol 3.125 mg BID PO 11/28/24 10:00 11/29/24 10:31 3.125 MG Spironolactone 25 mg DAILY PO 11/28/24 10:00 11/29/24 10:00 25 MG Patient Own Medication 1 tab DAILY PO 11/28/24 10:00 UNV Lisinopril 2.5 mg DAILY PO 11/28/24 10:00 11/29/24 10:30 2.5 MG Bumetanide 1 mg BIDD IV 11/28/24 18:00 11/29/24 06:06 1 MG Aspirin 81 mg DAILY PO 11/28/24 10:00 11/29/24 10:27 81 MG Empaglifozin 10 mg DAILY PO 11/29/24 10:00 11/29/24 10:28 10 MG Laboratory Results Laboratory Tests 11/29/24 06:44 Chemistry Test 11/29/24 06:44 Albumin 4.6 g/dL (3.2-4.8) Calcium Level 9.4 mg/dL (8.7-10.4) Total Protein 7.0 g/dL (5.7-8.2) LFT Test 11/29/24 06:44 Alanine Aminotransferase (ALT) 88 U/L (7-40) H Alkaline Phosphatase 123 U/L (46-116) H Aspartate Amino Transferase (AST) 82 U/L (13-40) H Total Bilirubin 1.7 mg/dL (0.2-1.0) H Urinalysis Test 11/28/24 21:30 Urine Color Light-yellow (Yellow) Urine Clarity Clear (Clear) Urine pH 7.0 (5.0-9.0) Urine Specific [place] 1.008 (1.001-1.035) Urine Protein Negative (Negative) Urine Ketones Negative (Negative) Urine Blood Negative /uL (Negative) Urine Nitrite Negative (Negative) Urine Bilirubin Negative (Negative) Urine Urobilinogen Normal mg/dL (Negative) Urine Leukocyte Esterase Negative /uL (Negative) Urine RBC <1 /hpf (0 - 3) Urine Microscopic WBC /HPF (0-3) Urine Squamous Epithelial Cells None seen /hpf (<5) Urine Bacteria None seen /hpf (None Seen) Urine Glucose Normal mg/dL (Normal) Microbiology Microbiology Date/Time Source Procedure Growth Status 11/28/24 23:20 Nose MRSA Screen - Final Complete Assessment/Plan Assessment/Plan Acute congestive heart failure. CHF education is given. Oral fluid restriction to 1200 mL per 24 hours. Continue current diuretics. Slowly start cardiac medications including Entresto as he had blood pressure and kidney function tolerates. We will have social Service consultation for placement issue. Discussed with the patient's nurse regarding care plan. Plan discussed with: Patient, Other My Orders Orders - MAR JACKSON MD Procedure Category Date Status Time * Software Applications Architect CONS 11/29/24 Transmitted Consult 13:32 Problem List: (1) Elevated troponin (2) CHF exacerbation Date of Service: Nov 29, 2024 Billing Provider: MAR JACKSON MD Common Visit Codes: [id number] INP/OBS CARE(MOD) MAR JACKSON MD Nov 29, 2024 14:45
[2024-11-29] MEDS: ONDANSETRON HCL 4 MG/2 ML VIAL IV PRN (15:03)
[2024-11-29 20:00] VITALS: PULSE 100; PULSE 99; RESP 18; O2SAT 97
[2024-11-30] VITALS (10 sets, daily range): BP systolic 97–139; BP diastolic 62–80; PULSE 81–111; RESP 17–21; TEMP 97.3–98.6; O2SAT 94–100
[2024-11-30 11:16] LABS: Hepatitis B Surface Antigen Negative (Negative); Hepatitis C Antibody Negative (Negative)
[2024-11-30] MEDS ORDERED: SPIR25TA8 PO (15:47)
[2024-11-30] MEDS ORDERED: DAPA1TAB4 PO (15:47)
[2024-11-30] MEDS ORDERED: CARV3.1240 PO (15:47)
[2024-11-30] MEDS ORDERED: BUME2TAB5 PO (15:47)
[2024-11-30] MEDS ORDERED: APIX5TAB PO (15:47)
--- NOTE | 2024-11-30 15:48 | DVHDS2 ---
Discharge Summary Date of Admission Nov 28, 2024 at 08:05 Date of Discharge: Dec 01, 2024 Labs/Diagnostic Data: Laboratory Results Test 11/29/24 06:44 11/28/24 21:30 11/28/24 14:00 11/28/24 05:26 White Blood Count 5.9 10^3/uL (4.4-10.8) Red Blood Count 4.65 10^6/uL (4.5-5.90) Hemoglobin 13.6 g/dL (13.5-17.5) Hematocrit 41.1 % (41.0-53.0) Mean Corpuscular Volume 88.3 fL (80.0-100.0) Mean Corpuscular Hemoglobin 29.3 pg (28.0-32.0) Mean Corpuscular Hemoglobin Concent 33.2 g/dL (32.0-36.0) Red Cell Distribution Width 16.1 % (11.8-14.3) Platelet Count 261 10^3/uL (140-450) Mean Platelet Volume 9.8 fL (6.9-10.8) Neutrophils (%) (Auto) 66.1 % (37.0-80.0) Lymphocytes (%) (Auto) 22.8 % (10.0-50.0) Monocytes (%) (Auto) 8.5 % (0.0-12.0) Eosinophils (%) (Auto) 1.3 % (0.0-7.0) Basophils (%) (Auto) 1.3 % (0.0-2.0) Neutrophils # (Auto) 3.9 10 ^3/uL (1.6-8.6) Lymphocytes # (Auto) 1.3 10 ^3/uL (0.4-5.4) Monocytes # (Auto) 0.5 10 ^3/uL (0-1.3) Eosinophils # (Auto) 0.1 10 ^3/uL (0-0.8) Basophils # (Auto) 0.1 10 ^3/uL (0-0.2) Nucleated Red Blood Cells 0.1 % Sodium Level 140 mmol/L (136-145) Potassium Level 4.0 mmol/L (3.5-5.1) Chloride Level 102 mmol/L (98-107) Carbon Dioxide Level 27 mmol/L (20-31) Anion Gap 11 (5-15) Blood Urea Nitrogen 26 mg/dL (9-23) Creatinine 1.27 mg/dL (0.700-1.30) Glomerular Filtration Rate Calc 77 mL/min (>90) BUN/Creatinine Ratio 20.5 (10.0-20.0) Serum Glucose 99 mg/dL (74-106) Calcium Level 9.4 mg/dL (8.7-10.4) Total Bilirubin 1.7 mg/dL (0.2-1.0) Aspartate Amino Transferase (AST) 82 U/L (13-40) Alanine Aminotransferase (ALT) 88 U/L (7-40) Alkaline Phosphatase 123 U/L (46-116) Total Protein 7.0 g/dL (5.7-8.2) Albumin 4.6 g/dL (3.2-4.8) Hepatitis B Surface Antigen Negative (Negative) Hepatitis C Antibody Negative (Negative) Urine Color Light-yellow (Yellow) Urine Clarity Clear (Clear) Urine pH 7.0 (5.0-9.0) Urine Specific [place] 1.008 (1.001-1.035) Urine Protein Negative (Negative) Urine Ketones Negative (Negative) Urine Blood Negative /uL (Negative) Urine Nitrite Negative (Negative) Urine Bilirubin Negative (Negative) Urine Urobilinogen Normal mg/dL (Negative) Urine Leukocyte Esterase Negative /uL (Negative) Urine RBC <1 /hpf (0 - 3) Urine Microscopic WBC /HPF (0-3) Urine Squamous Epithelial Cells None seen /hpf (<5) Urine Bacteria None seen /hpf (None Seen) Urine Glucose Normal mg/dL (Normal) Urine Opiates Screen Neg (NEGATIVE) Urine Fentanyl Screen Neg (NEGATIVE) Urine Barbiturates Screen Neg (NEGATIVE) Urine Phencyclidine Screen Neg (NEGATIVE) Urine Amphetamines Screen Neg (NEGATIVE) Urine Benzodiazepines Screen Neg (NEGATIVE) Urine Cocaine Screen Neg (NEGATIVE) Urine Cannabinoids Screen Neg (NEGATIVE) Troponin I High Sensitivity 215 ng/L (</=54) Test 11/28/24 02:28 Hemoglobin A1c 6.3 % A1C (<5.7) Magnesium Level 2.4 mg/dL (1.6-2.6) B-Type Natriuretic Peptide 2026.96 pg/mL (0-100) Triglycerides Level 66 mg/dL (< 150) Cholesterol Level 128 mg/dL (< 200) LDL Cholesterol 69 mg/dL (< 100) HDL Cholesterol 51 mg/dL (40-59) Thyroid Stimulating Hormone (TSH) 4.37 uIU/mL (0.55-4.78) Other Laboratory Tests 11/29/24 06:44 Brief Hx & Hospital Course: Kyler Tanner is a 29-year-old male with past medical history of CHF, hypertension, and DVT in left leg, who came to the hospital for shortness of breath. Patient states he was recently discharged from [facility] yesterday. He was trying to get home when he started experiencing chest pain and shortness of breath. Patient states he was hospitalized there for almost a week due to his heart failure. He has not been taking his home medications because he does not have them. He states, he did not know that he had to supervisor picking crew his prescriptions from the pharmacy, he thought the hospital would hand them to him. He is admitted and underwent cardiac evaluation. Patient noted to have end- stage cardiomyopathy with ejection fraction 10%. Patient is noncompliant with the his cardiac medications. Therefore he is counseled and educated regarding importance of cardiac medications to improve his cardiomyopathy. He is resumed on cardiac medications including diuretics. Patient counseled regarding fluid restriction and CHF education has also given. Patient otherwise overall clinically remained stable. Patient's prescriptions were renewed and advised to pick them up from the pharmacy on his way home after discharge. Patient is also highly encouraged advised to have close follow up with the primary care physician and aircraft time clerk. Patient verbalized understanding his hospital diagnosis, his heart failure disease, discharge medications, discharge instructions and agree with the follow up plan of care as outlined. Operations or Procedures APPROVED REPORT EXAM: Two-dimensional and M-mode echocardiogram with Doppler and color Doppler. Blood Pressure: 118/84 mmHg INDICATION Heart Failure RISK FACTORS Height: 6'2", Weight: 149 DIMENSIONS LVDd 6.5 (3.8-5.7cm) LA (2D) 4.2 (1.9-4.0cm) Aortic Root 2.3 (2.0- 3.7cm) LVDs 6.3 (2.5-4.0cm) LA (MM) (1.9-4.0cm) Aortic Cusp Exc 1.9 (1.5- 2.0cm) EF (%) 8.0 (55-70%) Rt. Atrium 5.3 (1.9-4.0cm) Asc. Aorta 2.0 cm IVSd 0.7 (0.7-1.1cm) RV (D) 4.2 (1.8-2.4cm) PWd 0.7 (0.7-1.1cm) Mitral Valve Mitral Mitral Stenosis E wave 1.34m/s MV Mean GR. mmHg E/A ratio 0.0 2D MVA cm2 Aortic Valve Aortic Valve Aortic Stenosis V1 0.66m/s AO Mean GR. 2mmHg V2 0.97m/s AO Peak GR. 4mmHg LVOT Diameter 1.9 (1.8-2.4cm) Doppler FELICIANO 1.93cm2 Pulmonic Valve V2 0.55m/s Tricuspid Valve TR Velocity 2.66m/s RVSP 45mmHg Conclusion LVEF 10% SEVER DILATED LV END STAGE CARDIOMYOPATHY RV DYSFUNCTION BIATRIAL ENLARGEMENT MILD MITRAL REGURG (COULD BE WORSE) SEVERE TRICUSPID REGURG NOTED milpd pulmonic regurg SIGNED BY: GRUPO HENRY MD Condition at Discharge: Stable Final Diagnosis/Problems List ACUTE ON CHRONIC HEART FAILURE WITH A DIASTOLIC DYSFUNCTION NONCOMPLIANCE WITH THE MEDICATIONS, CONGESTIVE CARDIOMYOPATHY EF 10% Discharge Disposition: Home Discharge Instruct/Medications Diet: Consistent carbohydrate, Cardiac 2g Na,low cholest Diet comment: RESTRICT YOUR ORAL FLUID INTAKE TO 1200 ML PER 24 HOURS DUE TO YOUR HEART FAILURE. Activity: No Restrictions, As Tolerated Follow Up/Referral: YOUR PRIMARY CARE PHYSICIAN NEXT WEEK AND ADMISSIONS MANAGER 3-4 WEEKS. Medications: TAKE MEDICATIONS PRESCRIBED PER DISCHARGE MED RECONCILIATION LIST. Scheduled Apixaban Base (Eliquis), 1 TAB PO BID Bumetanide (Bumetanide), 1 TAB PO BID Carvedilol (Carvedilol), 1 TAB PO BID Dapagliflozin Propanediol (Farxiga), 1 TAB PO DAILY Spironolactone (Spironolactone), 1 TAB PO DAILY Discontinued Medications Aspirin (Aspirin Low Dose), 1 TAB PO DAILY, (Reported) Lisinopril (Lisinopril), PO, (Reported) Discharge Statement: "Patient was advised to return to the ER or call 911 if any headaches, dizziness, shortness of breath, chest pain, abdominal pain, bleeding, fevers, or worsening of medical condition. Patient was counseled about treatment plan, medications, possible side effects, patientverbalized understanding. All questions were answered to the best of my ability. This discharge took greater then 30 minutes in planning, reviewing documentation, counseling the patient, and discussing with other team members." ASSESSMENT ASSESSMENT Assessment ACUTE ON CHRONIC HEART FAILURE WITH A DIASTOLIC DYSFUNCTION NONCOMPLIANCE WITH THE MEDICATIONS, CONGESTIVE CARDIOMYOPATHY EF 10% Date of Service: Dec 01, 2024 Billing Provider: MAR JACKSON MD Common Visit Codes: [id number] DISCH DAY <30MIN MAR JACKSON MD Nov 30, 2024 15:48
[2024-11-30] MEDS: FAMOTIDINE 20 MG TAB PO SCH (22:41)
[2024-12-01 01:00] VITALS: BP 110/80; PULSE 109; RESP 21; TEMP 98.2; O2SAT 98
[2024-12-01 05:00] VITALS: BP 105/80; PULSE 102; RESP 20; TEMP 97.8; O2SAT 100
[2024-12-01 09:00] VITALS: BP 105/74; PULSE 98; RESP 18; TEMP 98; O2SAT 98
[2024-12-01 13:00] VITALS: BP 110/80; PULSE 170; RESP 21; TEMP 97.8; O2SAT 100
[2024-12-01 17:00] VITALS: BP 119/85; PULSE 107; RESP 21; TEMP 98.1; O2SAT 91
[2024-12-01] MEDS ORDERED: BUMETANIDE 1 MG TAB PO SCH (18:00)
== END 2024-12-01 17:30 | disposition home or self-care (01) | DRG 194 ==
LOC: ER 00:54 → EDBD 00:54 → OVERFLOW 08:05 → TELE-WESTW 22:53 → WEST WING 11-30 13:30
PROVIDERS: ADMIT Hospitalist; ATTEND Hospitalist
DX: I11.0 Hypertensive heart disease with heart failure (principal); I21.A1 Myocardial infarction type 2; I42.0 Dilated cardiomyopathy; I05.0 Rheumatic mitral stenosis; I50.43 Acute on chronic combined systolic (congestive) and diastolic (congestive) heart failure; I37.1 Nonrheumatic pulmonary valve insufficiency; I35.0 Nonrheumatic aortic (valve) stenosis; I07.1 Rheumatic tricuspid insufficiency; Z91.148 Patient's other noncompliance with medication regimen for other reason; Z87.891 Personal history of nicotine dependence; Z86.718 Personal history of other venous thrombosis and embolism
CPT/HCPCS: 36415; 71045; 80048; 80053; 80061; 80307; 81001; 83036; 83735; 83880; 84443; 84484; 85025; 86803; 87081; 87340; 93005; 93306; 93971; 96374; 99291; G0378; J2405